=== PATIENT | female | born 1995 | race Caucasian/White ===

== ENCOUNTER 2023-12-15 19:29 | Outpatient (CLI) | payer BC, SELFPAY ==
[2023-12-15 18:25] LABS: Basophils % 0.6 % (0.1-2.0); Eosinophils # 0.1 K/mm3 (0.0-0.4); Eosinophils % 1.2 % (0.1-12.0); Hematocrit 41.4 % (37.0-47.0); Lymphocytes # 2.1 K/mm3 (0.7-4.5); Lymphocytes % 29.9 % (10-50); Mean Corpuscular HGB Conc 33.8 g/dL (31.8-35.4); Mean Corpuscular Hemoglobin 29.9 pg (27.0-31.2); Mean Corpuscular Volume 88.4 fl (81-99); Mean Platelet Volume 8.9 fl (7.4-10.4); Monocytes # 0.4 K/mm3 (0.1-1.0); Monocytes % 5.3 % (1.7-9.3); Neutrophils # 4.4 K/mm3 (1.8-7.8); Platelet Count 373 K/mm3 (142-424); Red Blood Count 4.68 M/mm3 (4.20-5.40); Red Cell Distribution Width 14.5 % (11.5-17.5)
[2023-12-15 18:39] LABS: Alanine Aminotransferase 13 U/L (12-78); Albumin Level 4.2 g/dl (3.5-5.0); Albumin/Globulin Ratio 1.3 (1.1-1.8); Alkaline Phosphatase 87 U/L (38-126); Anion Gap 11.8 mEq/L (5-15); Aspartate Amino Transferase 23 U/L (14-36); Bilirubin,Total 0.6 mg/dl (0.2-1.3); Blood Urea Nitrogen 5 mg/dl (7-17); Calcium 9.1 mg/dl (8.4-10.2); Carbon Dioxide 23 mmol/L (22.0-30.0); Chloride 107 mmol/L (98-107); Estimated Glomerular Filt Rate 98 ml/min (>60); GFR (African American) 119 ML/MIN (>60); Globulin 3.3 g/dL (1.3-3.2); Glucose 95 mg/dl (74-100); Potassium 3.8 mmoL/L (3.5-5.1); Sodium 138 mmol/L (136-145); Total Protein,Serum 7.5 g/dl (6.3-8.2); Uric Acid 3.3 mg/dl (2.5-6.2)
[2023-12-15 18:46] LABS: C-Reactive Protein 3.5 mg/L (0-4)
[2023-12-15 19:04] LABS: Erythrocyte Sedimentation Rate 41 mm/hr (0-20)
[2023-12-15 19:05] LABS: 25-OH Vitamin D, Total < 12.8 ng/mL (30-100)
[2023-12-15 19:10] LABS: Thyroid Stimulating Hormone 1.79 uIU/mL (0.465-4.68)
[2023-12-15 19:29] LABS: Vitamin B12 298 pg/mL (239-931)
[2023-12-17 08:22] LABS: RA Latex Turbid. 10.3 IU/mL (<14.0)
[2023-12-17 11:26] LABS: Anti-Centromere B Antibodies <0.2 AI (0.0-0.9); Anti-DNA (DS) Ab Qn <1 IU/mL (0-9); Anti-Jo-1 <0.2 AI (0.0-0.9); Anti-Smith Antibody 0.2 AI (0.0-0.9); Antichromatin Antibodies <0.2 AI (0.0-0.9); Antiscleroderma-70 Antibodies <0.2 AI (0.0-0.9); RNP Antibodies <0.2 AI (0.0-0.9); Sjogren's Anti-SS-A 0.2 AI (0.0-0.9); Sjogren's Anti-SS-B <0.2 AI (0.0-0.9)
[2023-12-20 10:11] LABS: Antinuclear Antibodies, IFA Negative (.)
== END 2023-12-15 23:59 ==
LOC: LAB.DROPOF 19:29
PROVIDERS: PCP Nurse Practitioner; Visit Provider Nurse Practitioner
DX: R42 Dizziness and giddiness (principal); M79.601 Pain in right arm; M79.602 Pain in left arm; R20.2 Paresthesia of skin; E55.9 Vitamin D deficiency, unspecified; Z82.0 Family history of epilepsy and other diseases of the nervous system; Z79.899 Other long term (current) drug therapy
CPT/HCPCS: 80053; 82306; 82607; 83036; 84443; 84550; 85025; 85651; 86038; 86140; 86225; 86235; 86431

== ENCOUNTER 2024-01-06 07:45 | Outpatient (CLI) | payer BC, SELFPAY ==
--- NOTE | 2024-01-06 07:45 | MR_ITS ---
FINAL REPORT CLINICAL HISTORY: bilateral upper and lower extremity paresthesias FINDINGS: Multiplanar MR imaging of the brain was performed without and with contrast. There is no evidence of intracranial hemorrhage or mass. No abnormal extra-axial fluid collection is seen. The ventricular size is within normal limits. There is no evidence of shift of the midline structures. The posterior fossa and brainstem have an unremarkable appearance. No area of abnormal restricted diffusion is identified. No abnormal contrast enhancement is seen. Normal major vessel vascular flow voids are noted. IMPRESSION: No acute intracranial abnormality identified. Reviewed, Interpreted and Dictated by Ganesh Batista MD Transcribed by Alesia Thurman Authenticated and [facility]
[2024-01-06] MEDS: GADOTERIDOL INJ 17ML SYRINGE 12 ML IV (09:03)
[2024-01-06] MEDS: SODIUM CHLORIDE 0.9% 10ML SYR (RAD ONLY) 10 ML IV (09:04)
== END 2024-01-06 23:59 ==
LOC: RAD 07:45
PROVIDERS: PCP Nurse Practitioner; Visit Provider Nurse Practitioner
DX: M79.601 Pain in right arm (principal); M79.602 Pain in left arm; R20.2 Paresthesia of skin; Z82.0 Family history of epilepsy and other diseases of the nervous system
CPT/HCPCS: 70553; A9576

== ENCOUNTER 2024-01-11 12:45 | Outpatient (CLI) | payer BC, SELFPAY ==
--- NOTE | 2024-01-11 12:48 | XR_ITS ---
FINAL REPORT CLINICAL HISTORY: Eval for stenosis, myelopathy COMPARISON: None. FINDINGS: AP, lateral, odontoid, oblique, and flexion and extension views of the cervical spine were obtained. The odontoid view is limited. There is no acute fracture or acute malalignment. Vertebral body height is preserved. Disc space height is preserved. No foraminal stenosis is noted on oblique views. The precervical soft tissues are normal. There is no change in alignment upon flexion or extension. IMPRESSION: No acute osseous abnormality of the cervical spine and no change in alignment upon flexion or extension. Authenticated and [facility]
== END 2024-01-11 23:59 ==
LOC: RAD 12:46
PROVIDERS: PCP Nurse Practitioner; Visit Provider Nurse Practitioner Family
DX: M79.601 Pain in right arm (principal); M79.602 Pain in left arm; R20.2 Paresthesia of skin; R29.2 Abnormal reflex; R29.818 Other symptoms and signs involving the nervous system; R42 Dizziness and giddiness
CPT/HCPCS: 72052